=== PATIENT | male | born 1940 | race Caucasian/White ===

== ENCOUNTER → 2016-11-14 | Outpatient (CLI) | payer OTHER | LOC: BMCIMAGING 13:24 | PROVIDERS: ATTEND Podiatrist Foot & Ankle Surgery | DX: M19.071 Primary osteoarthritis, right ankle and foot (principal); M25.571 Pain in right ankle and joints of right foot; Z98.890 Other specified postprocedural states ==

== ENCOUNTER → 2016-11-21 | Outpatient (CLI) | payer OTHER | LOC: BMCIMAGING 11:30 | PROVIDERS: ATTEND Orthopaedic Surgery | DX: M19.011 Primary osteoarthritis, right shoulder (principal) ==

== ENCOUNTER → 2016-11-27 | Outpatient (CLI) | payer OTHER | LOC: FIMAGING 13:03 | PROVIDERS: ATTEND Orthopaedic Surgery | DX: M75.121 Complete rotator cuff tear or rupture of right shoulder, not specified as traumatic (principal); M25.411 Effusion, right shoulder ==

== ENCOUNTER 2017-01-07 05:51 | Inpatient (IN) | payer OTHER ==
[2017-01-07] MEDS ORDERED: LR 1,000 ML IV SCH (06:11)
[2017-01-07] MEDS ORDERED: ACETAMINOPHEN 500 MG TAB PO ONE (06:11)
[2017-01-07] MEDS ORDERED: ceFAZolin 2 GM/SWFI 2 GM/20 ML SYR IVP ONE (06:11)
[2017-01-07] MEDS ORDERED: LR 1,000 ML IV ONE (06:12)
--- NOTE | 2017-01-07 06:37 | PDHPUP ---
History & Physical Update H&P update statement: This history and physical update is based on an assessment of the patient which was completed after admission or registration (within 24 hours), but prior to the surgery/procedure.
[2017-01-07] MEDS ORDERED: CALCIUM CHLORIDE 1 GM/10 ML INJ ONE (06:38)
[2017-01-07] MEDS ORDERED: THROMBIN (BOVINE) 5,000 UNIT VIAL TP ONE (06:38)
--- NOTE | 2017-01-07 06:38 | PDIAF ---
- Diagnosis Diagnosis: right shoulder djd Code Status: Full Code - Medication Management Discharge Medications: Medications to Continue on Transfer Aspirin [Aspirin 81mg (*)] 81 mg PO DAILY 12/24/16 [Last Taken 12/31/16] Hydrocodone/Acetaminophen [[place] 5/325 (*)] 1 - 2 tab PO DAILY PRN 12/24/16 [ Last Taken 01/06/17 07:00] Lisinopril/Hctz 20/12.5MG [Zestoretic/Prinzide 20/12.5MG (*)] 1 ea PO DAILY 08/04 [Last Taken 01/05/17 20:45] Naproxen Sodium [Aleve 220 MG (*)] 220 mg PO BID PRN 12/24/16 [Last Taken Unknown] Simvastatin [Zocor] 20 mg PO HS 12/24/16 [Last Taken 01/05/17 20:45] amLODIPine BESYLATE [Norvasc 10 mg (*)] 10 mg PO HS 12/24/16 [Last Taken 20:45] Discharge Medications: Refer to the Discharge Home Medication list for PRN reason. - Orders Services needed: Home Care, Physical Therapy Home Care Face to Face: I certify that this patient was under my care and that I had the required [id number] encounter meeting the encounter requirements on the discharge day. My findings support the fact that the patient is homebound as defined in Home Care Face to Face Continued: CMS Chapter 7 Medicare Benefits Manual 30.1.1 , The condition of the patient is such that there exists a normal inability to leave home and consequently, leaving home would require a considerable and taxing effort. Activity/Weight Bearing Restrictions: pendulum rom only. sling at all times when not performing pendulum rom. daily dressing changes. may shower without bandage. no soaking. f/u at two weeks [facility] - Follow Up Care Current Providers and Referrals: Silvestre Yates MD [Primary Care Provider] -
[2017-01-07] MEDS ORDERED: POLYMYXIN B SULFATE 500,000 UNIT/10 ML SYR IRR ONE (06:39)
[2017-01-07] MEDS ORDERED: BACITRACIN 50,000 UNITS/10 ML SYR IRR ONE (06:39)
[2017-01-07] MEDS ORDERED: ROCURONIUM 50 MG/5 ML VIAL ONE (07:03)
[2017-01-07] MEDS ORDERED: ROPIVACAINE HCL 150 MG/30 ML INJ ONE (07:03)
[2017-01-07] MEDS ORDERED: PROPOFOL 200 MG/20 ML VIAL ONE (07:04)
[2017-01-07] MEDS ORDERED: fentaNYL 100 MCG/2 ML INJ ONE ×3 (07:04→09:40)
[2017-01-07] MEDS ORDERED: MIDAZOLAM 2 MG/2 ML VIAL ONE (07:04)
[2017-01-07] MEDS ORDERED: BUPIVACAINE/EPI 0.5% 30 ML SDV ONE (07:30)
--- NOTE | 2017-01-07 07:36 | PDANEPAE ---
ANE History of Present Illness r shoulder OA ANE Past Medical History - Cardiovascular History Hx Hypertension: Yes Hx Arrhythmias: No Hx Chest Pain: No Hx Coronary Artery / Peripheral Vascular Disease: No Hx CHF / Valvular Disease: No Hx Palpitations: No - Pulmonary History Hx COPD: No Hx Asthma/Reactive Airway Disease: No Hx Recent Upper Respiratory Infection: No Hx Oxygen in Use at Home: No Hx Sleep Apnea: No Sleep Apnea Screening Result - Last Documented: Positive - Neurologic History Hx Cerebrovascular Accident: No Hx Seizures: No Hx Dementia: No - Endocrine History Hx Diabetes: No - Renal History Hx Renal Disorders: No - Liver History Hx Hepatic Disorders: No - Neurological & Psychiatric Hx Hx Neurological and Psychiatric Disorders: No - Cancer History Hx Cancer: No - Congenital Disorder History Hx Congenital Disorders: No - GI History Hx Gastrointestinal Disorders: No - Other Health History Other Health History: none - Chronic Pain History Chronic Pain: Yes (R foot,Knees lbilat shoulders, bone spur right hand) - Surgical History Prior Surgeries: plate in R ankle. R WRIST ANE Review of Systems Review of Systems: - Exercise capacity METS (RN): 4 METS ANE Patient History - Allergies Allergies/Adverse Reactions: No Known Allergies Allergy (Verified 12/27/16 15:50) - Home Medications Home Medications: Aspirin [Aspirin 81mg (*)] 81 mg PO DAILY 12/24/16 [Last Taken 12/31/16] Hydrocodone/Acetaminophen [[place] 5/325 (*)] 1 - 2 tab PO DAILY PRN 12/24/16 [ Last Taken 01/06/17 07:00] Lisinopril/Hctz 20/12.5MG [Zestoretic/Prinzide 20/12.5MG (*)] 1 ea PO DAILY 08/04 [Last Taken 01/05/17 20:45] Naproxen Sodium [Aleve 220 MG (*)] 220 mg PO BID PRN 12/24/16 [Last Taken Unknown] Simvastatin [Zocor] 20 mg PO HS 12/24/16 [Last Taken 01/05/17 20:45] amLODIPine BESYLATE [Norvasc 10 mg (*)] 10 mg PO HS 12/24/16 [Last Taken 20:45] - NPO status NPO Since - Liquids (Date): 01/06/17 NPO Since - Liquids (Time): 20:45 NPO Since - Solids (Date): 01/06/17 NPO Since - Solids (Time): 20:45 - Smoking Hx Smoking Status: Never smoked - Family Anes Hx Family Hx Anesthesia Complications: none ANE Labs/Vital Signs - Vital Signs Blood Pressure: 124/78 Heart Rate: 70 Respiratory Rate: 17 O2 Sat (%): 95 Height: 177.8 cm Weight: 90.718 kg ANE Physical Exam - Airway Neck exam: FROM Mallampati Score: Class 2 Mouth exam: normal dental/mouth exam - Pulmonary Pulmonary: no respiratory distress - Cardiovascular Cardiovascular: regular rate and rhythym - ASA Status ASA Status: II ANE Anesthesia Plan Anesthesia Plan: general endotracheal anesthesia Regional Anesthesia: interscalene BP NB
[2017-01-07] MEDS ORDERED: fentaNYL 100 MCG/2 ML INJ IVP PRN (08:10)
[2017-01-07] MEDS ORDERED: MEPERIDINE 25 MG/ML SYR IVP PRN (08:10)
[2017-01-07] MEDS ORDERED: ONDANSETRON 4 MG/2 ML VIAL IVP PRN (08:10)
[2017-01-07] MEDS ORDERED: OXYCODONE/APAP 5/325 TAB PO PRN (08:10)
[2017-01-07] MEDS ORDERED: PROMETHAZINE HCL 25 MG/ML INJ IVP PRN (08:10)
[2017-01-07] MEDS ORDERED: NALOXONE HCL 0.4 MG/ML INJ IVP PRN (08:10)
[2017-01-07] MEDS ORDERED: HYDROmorphONE/DILAUDID 1 MG/ML INJ IVP PRN (08:10)
--- NOTE | 2017-01-07 08:53 | POSTANESTH ---
Post Anesthetic Evaluation Cardiovascular Status: Normal, Stable Respiratory Status: Normal, Stable Level of Consciousness/Mental Status: Can Participate in Eval Pain Control: Adequate, Prn Tx Ordered Nausea/Vomiting Control: Adequate, Prn Tx Ordered Complications Possibly Related to Anesthesia: None Noted
[2017-01-07] MEDS ORDERED: KETOROLAC 15 MG/1 ML SDV IVP ONE (08:56)
[2017-01-07] MEDS ORDERED: D5W 1/2 NS W/ 20 KCl/L 1,000 ML IV SCH (09:00)
[2017-01-07] MEDS ORDERED: KETOROLAC 15 MG/1 ML SDV ONE (09:20)
[2017-01-07] MEDS ORDERED: HYDROmorphONE/DILAUDID 1 MG/ML INJ ONE (09:41)
[2017-01-07] MEDS: DOCUSATE SODIUM 100 MG CAP PO SCH ×2 (11:04→21:33)
[2017-01-07] MEDS: LISINOPRIL/HCTZ 20/12.5MG 1 EA TAB PO SCH (11:04)
[2017-01-07] MEDS: oxyCODONE IR 5 MG TAB PO PRN ×3 (11:15→21:38)
--- NOTE | 2017-01-07 13:35 | SOAPPROG ---
SOAP Progress Note Assessment/Plan: Assessment: s/p right tsa Plan:stable anticipate d;c home tomorrow pendulum rom dvt precautions 01/07/17 13:33 Subjective: no function to right hand no pain Objective: Vital Signs Temp Pulse Resp BP Pulse Ox 36.8 C 70 18 127/72 H 99 01/07/17 13:26 01/07/17 13:26 01/07/17 13:26 01/07/17 13:26 01/07/17 13:26 01/06/17 01/07/17 01/08/17 05:59 05:59 05:59 Intake Total 950 Output Total 10 Balance 940 dressing clean, dry intact no function r,u,m,axillary warm and pink ICD10 Worksheet Patient Problems: Problems Problem Status Onset Shoulder arthritis Acute Shoulder arthritis Acute - ICD10 Problem Qualifiers (1) Shoulder arthritis (2) Shoulder arthritis
[2017-01-07] MEDS: ceFAZolin 2 GM/DEXTROSE 100 ML IV SCH ×2 (14:58→21:32)
[2017-01-07] MEDS ORDERED: NON-FORMULARY NEW DRUG (Simvastatin [Zocor] 20 MG) PO SCH (21:00)
[2017-01-07] MEDS ORDERED: ATORVASTATIN CALCIUM 10 MG TAB PO SCH (21:00)
[2017-01-08] MEDS: oxyCODONE IR 5 MG TAB PO PRN ×3 (03:41→12:17)
--- NOTE | 2017-01-08 07:10 | PDIAF ---
- Diagnosis Diagnosis: right shoulder djd Code Status: Full Code - Medication Management Discharge Medications: Medications to Continue on Transfer Aspirin [Aspirin 81mg (*)] 81 mg PO DAILY 12/24/16 [Last Taken 12/31/16] Hydrocodone/Acetaminophen [[place] 5/325 (*)] 1 - 2 tab PO DAILY PRN 12/24/16 [ Last Taken 01/06/17 07:00] Lisinopril/Hctz 20/12.5MG [Zestoretic/Prinzide 20/12.5MG (*)] 1 ea PO DAILY 08/04 [Last Taken 01/05/17 20:45] Naproxen Sodium [Aleve 220 MG (*)] 220 mg PO BID PRN 12/24/16 [Last Taken Unknown] Simvastatin [Zocor] 20 mg PO HS 12/24/16 [Last Taken 01/05/17 20:45] amLODIPine BESYLATE [Norvasc 10 mg (*)] 10 mg PO HS 12/24/16 [Last Taken 20:45] oxyCODONE IR [Oxycodone Ir (*)] 5 - 15 mg PO Q4HRS PRN #80 tab 01/08/17 [Last Taken Unknown] Discharge Medications: Refer to the Discharge Home Medication list for PRN reason. - Orders Services needed: Home Care, Physical Therapy Home Care Face to Face: I certify that this patient was under my care and that I had the required [id number] encounter meeting the encounter requirements on the discharge day. My findings support the fact that the patient is homebound as defined in Home Care Face to Face Continued: CMS Chapter 7 Medicare Benefits Manual 30.1.1 , The condition of the patient is such that there exists a normal inability to leave home and consequently, leaving home would require a considerable and taxing effort. Diet Recommendation: no restrictions on diet Diet Texture: Regular Texture Diet Activity/Weight Bearing Restrictions: pendulum rom only. sling at all times when not performing pendulum rom. daily dressing changes. may shower without bandage. no soaking. f/u at two weeks [facility] - Follow Up Care Current Providers and Referrals: Silvestre Yates MD [Primary Care Provider] -
--- NOTE | 2017-01-08 07:35 | GDS ---
[f rep st] DISCHARGE SUMMARY ADMIT DIAGNOSIS: Right shoulder rotator cuff arthropathy. POSTOP DIAGNOSIS: Right shoulder rotator cuff arthropathy. PROCEDURE: Right reverse total shoulder arthroplasty. HISTORY OF PRESENT ILLNESS: The patient is a 76-year-old with right shoulder rotator cuff arthropath y. He has failed all attempts at conservative management. I have recommended reverse total shoulder arthroplasty. He understood the risks, benefits, alternatives, and wished to proceed. HOSPITAL COURSE: The patient was admitted overnight after uncomplicated total shoulder arthroplasty. He tolerated the procedure well. At the time of discharge, he is tolerating an oral diet. His tita n is well controlled on oral medicines. He is voiding without difficulty. His dressing is clean, dr y, and intact. He has intact axillary, radial, ulnar, median nerve, motor and sensory function. X-r ays are stable with anatomic alignment. He has no calf swelling or tenderness. Negative Homans. DISCHARGE ACTIVITY: Pendulum range of motion. Daily dressing changes. No soaking or immersion. Sl ing at all other times. FOLLOWUP: In 2 weeks. DISCHARGE MEDICATIONS: Oxycodone 5 mg 1-2 every 4 hours p.r.n. pain. Copy requested to: Primary Care Physician /[id number]/MODL
[2017-01-08 07:49] VITALS: TEMP 98.4
[2017-01-08] MEDS: DOCUSATE SODIUM 100 MG CAP PO SCH (08:13)
[2017-01-08] MEDS: LISINOPRIL/HCTZ 20/12.5MG 1 EA TAB PO SCH (08:13)
[2017-01-08] MEDS ORDERED: ONDANSETRON DISINTEGRATING 4 MG TAB PO PRN (09:54)
[2017-01-08 11:41] VITALS: BP 98/51; PULSE 59; RESP 16; O2SAT 99
--- NOTE | 2017-01-08 14:25 | ASDISCHSUM ---
Discharge Information Plan Status:Home with Home Health Medically Cleared to Leave: Discharge Date:01/08/2017 02:07 PM CM D/C Disposition:Home Health Service ADT D/C Disposition:Home Health Service Projected Discharge Date:01/08/2017 11:00 AM Transportation at D/C: Discharge Delay Reason: Follow-Up Date:01/08/2017 11:00 AM Discharge Slot: Final Diagnosis: Placement Information Referral Type:*Home Health Care Services Referral ID:[id number] Provider Name:[facility] Address 1:[address] Address 2: City:[place] Selection Factors: State:[place] Patient Contact Information Contact Name:JUSTEN Relationship: Address:[address] Phone: City:[place] Alternate Phone: State/Zip Code:[place] [address] Email: Financial Information Financial Class: Primary Plan Desc:MEDICARE INPATIENT Primary Plan Number:[id number] Secondary Plan Desc:[facility] Secondary Plan Number:[id number] Assessment Information BC CM Progress Note CM Note CM Note Notes: Pt medically stable for d/c w [facility] PT, address/phone verified. Orders to be obtained in [employer]. Date Signed: 01/08/2017 02:22 PM Electronically Signed By:ANSHUL Corley Intervention Information
--- NOTE | 2017-01-09 12:10 | GOP ---
[f rep st] OPERATIVE REPORT DATE OF OPERATION: 01/07/2017 SURGEON: Caio Lopez MD TESTER WASTE DISPOSAL LEAKAGE: Tha Galvez, ART GLASS SETTER, REGISTRATION REP, kennel assistant, who was a medical necessity for the entire ty of the case. PREOPERATIVE DIAGNOSIS: Right shoulder rotator cuff arthropathy. POSTOPERATIVE DIAGNOSIS: Right shoulder rotator cuff arthropathy. PROCEDURE PERFORMED: Right reverse total shoulder arthroplasty. FINDINGS: SPECIMENS: Pathology the bony fragments. INDICATIONS: The patient is a 77-year-old gentleman with end-stage arthritis and rotator cuff defici ency to his right shoulder. He has failed all attempts at conservative management. I have, therefor e, recommended operative intervention. I have outlined the surgical procedure, risks, benefits, and alternatives. He wished to proceed. Written consent was signed and placed in patient's chart. DESCRIPTION OF PROCEDURE: Patient was identified in the preanesthesia area. The right shoulder sheila rly demarcated as the operative site with indelible marker. He was given 2 g of Ancef intravenously en route to the operative suite. In the preanesthesia area the right shoulder was clearly demarcated as the operative site with indelible marker. An inner scalene block was placed in the preoperative area by anesthesia. In the OR, general tracheal anesthesia was administered. He was positioned in t he beach chair position. All bony prominences were well padded, including the use of a neurological head of design. Attention was turned to the right shoulder and upper extremity which was sterilely prep ped and draped in the usual fashion. Appropriate time-out procedure was carried out. A standard ant erior midline incision was made. A deltopectoral interval was approached. The deltoid was then spli t along its medial border and retracted with the cephalic vein medially. A self-retaining retractor was placed deep to this, across the conjoined tendon. The subscapularis was elevated off the anterio r aspect of the humerus. The biceps tenotomy was performed. The capsule and subscapularis were elev ated off the rotator cuff and with external rotation the head was delivered through the rotator cuff. The proximal cut was made and the bony fragment withdrawn. Attention was first turned to the gleno id. Retractors were placed allowing full visualization of the glenoid. Remnants of the glenoid labr um were sharply excised. The pin was placed in the central inferior portion of the glenoid and reame d for the [place] component. The [place] was then impacted, confirmed to be fully seated, secured with locking and nonlocking screws and a 42 mm glenoid sphere was impacted over the medical line comp onent secured. Attention was turned to the proximal humerus. This was reamed in a proximal fashion to a size 14 stem. A guidance stem was placed and the proximal epiphysis reamed with a size 2 centra l epiphysis. The components were assembled on the back table and secured and trial reduction was car ried out with a 12 mm polyethylene spacer, selected as the final implant. The stem was confirmed to be fully seated. A 9 mm augmentation was then placed followed by the addition of a 3 mm polyethylene spacer. The shoulder was taken through a full range of motion, was stable and appropriate. The wou nd was copiously irrigated. The subscapularis was repaired to the anterior aspect of the humerus. T he wound was copiously irrigated, injected with platelet-rich plasma solution. The subcutaneous tiss ue closed with 0 Vicryl ini the deltoid, 0 Quill for the subcutaneous tissue and the skin was stapled . The margins and soft tissue had been instilled with 0.5% Marcaine, total 20 cc. Sterile dressing was applied, followed by a cryocuff and shoulder immobilizer. The patient was awakened extubated nick en recovery in stable condition. TOTAL TOURNIQUET TIME: None. COMPLICATIONS: None. IMPLANTS: The DePuy Delta extend, size 14 stem, size 2 epiphysis 9 mm augmentation 3 mm polyethylene spacer 42 mm glenoid sphere, a medical line component in 4 screws as above. DISPOSITION: To the recovery room, then the floor. /[id number]/MODL
== END 2017-01-08 14:07 | disposition home health service (06) | DRG 483 ==
LOC: F3N 05:51
PROVIDERS: ADMIT Orthopaedic Surgery; ATTEND Orthopaedic Surgery
PROC: 0RRJ00Z Replacement of Right Shoulder Joint with Reverse Ball and Socket Synthetic Substitute, Open Approach (ICD-10-PCS; principal; 2017-01-07 07:15)
DX: M19.011 Primary osteoarthritis, right shoulder (principal); M75.101 Unspecified rotator cuff tear or rupture of right shoulder, not specified as traumatic; I10 Essential (primary) hypertension
CPT/HCPCS: 97165-GO; C1713; G8987-GO-CJ; G8988-GO-CJ; G8989-GO-CJ; J0690; J1170; J1885; J2250; J2704; J2795; J3010

== ENCOUNTER → 2017-02-19 | Outpatient (CLI) | payer OTHER | LOC: BMCIMAGING 09:01 | PROVIDERS: ATTEND Physician Assistant | DX: Z47.1 Aftercare following joint replacement surgery (principal); Z96.611 Presence of right artificial shoulder joint ==